=== PATIENT | female | born 1965 | race Caucasian/White ===

== ENCOUNTER 2021-09-24 21:13 | Emergency (ER) | payer BC, OTHER ==
[2021-09-24 21:21] VITALS: BP 116/64; PULSE 67; TEMP 98.7; BMI 24.3
== END 2021-09-24 22:37 | disposition home or self-care (01) ==
LOC: FER 21:13
DX: S52.124A Nondisplaced fracture of head of right radius, initial encounter for closed fracture (principal); W01.0XXA Fall on same level from slipping, tripping and stumbling without subsequent striking against object, initial encounter
CPT/HCPCS: 73070-TC-RT-FY; 73110-TC-RT-FY; 99284-25